=== PATIENT | female | born 1995 | race Caucasian/White ===

== ENCOUNTER 2017-09-23 15:37 | Emergency (ER) | payer BC, OTHER ==
[~2017-09-23] VITALS: Ht 160 cm; Wt 94.5 kg
[2017-09-23 15:40] VITALS: TEMP 36.6; O2SAT 98; Ht 160 cm; Wt 94.5 kg
[2017-09-23] MEDS ORDERED: SODIUM CHLORIDE 0.9% 1000ML 1,000 ML IV STA ×2 (16:04→18:16)
[2017-09-23] MEDS ORDERED: ONDANSETRON INJ 2 MG/ML 2 ML VIAL IV STA (16:04)
[2017-09-23] MEDS ORDERED: CYCL10TA6 PO (16:13)
[2017-09-23] MEDS ORDERED: ONDANSETRON INJ 2 MG/ML 2 ML VIAL ONE (16:15)
[2017-09-23 16:24] LABS: BASO % 0.1 %; BASO ABS # 0.03 K/uL (0-0.2); EOS % 0.2 %; EOS ABS # 0.05 K/uL (0-0.5); HEMATOCRIT 47.1 % (37-47); HEMOGLOBIN 16.6 g/dL (12.0-16.0); IG# 0.08 K/uL (0.00-0.02); LYMPH % 9.8 %; LYMPH ABS # 2.11 K/uL (1.2-3.4); MEAN CELL VOLUME 87.4 fL (80-100); MEAN CORPUSCULAR HEMOGLOBIN 30.8 pg (25-34); MEAN CORPUSCULAR HGB CONC 35.2 g/dl (32-36); MEAN PLATELET VOLUME 10.5 fL (7.4-10.4); MONO % 6.3 %; MONO ABS # 1.35 K/uL (0.11-0.59); NEUT % 83.2 %; NEUT ABS # 17.92 K/uL (1.4-6.5); PLATELET COUNT 330 K/uL (130-400); RED CELL DISTRIBUTION WIDTH CV 12.8 % (11.5-14.5); RED CELL DISTRIBUTION WIDTH SD 40.5 fL (36.4-46.3); WHITE BLOOD COUNT 21.54 K/uL (4.8-10.8)
--- NOTE | 2017-09-23 16:30 | EMERGENCY ROOM VISIT NOTE ---
History First contact with patient: 15:43 Chief Complaint: SYNCOPE (NEAR SYNCOPE) Stated Complaint: LIGHTHEADED, Nursing Triage Summary: Pt was donating plasma at [facility] and became lightheaded, diaphoretic, and vomited x1. Pt did not lose conciousness. Pt reports she has had 2 similar episodes in the last several weeks, but she was not donating plasma at the time and she did not vomit. Pt was evaluated at [facility] [place] after episodes. Pt reports she had a few granola bars today. Denies pain anywhere. History of Present Illness The patient is a 21 year old female who presents to the Emergency Room with complaints of presyncopal episode which occurred today while donating plasma. The patient states she was at [facility] and was part way through the plasma donation when she began experiencing significant lightheadedness, diaphoresis, and emesis 1. The patient did not lose consciousness. She does report having 2 similar episodes in the past 2-3 weeks, but states these episodes were not obviously provoked. 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 She states she was at the nursing station at that time. She was seen and evaluated in the emergency department, and states her heart rate was 140 at the time. That was the only abnormality in addition to a urinary tract infection. She states she was treated with Bactrim, and did not experience any episodes until after finishing the course. The second episode occurred approximately 8 days later while cutting onions. She was seen at a different hospital at that time, and had a normal workup performed. The patient does have an appointment scheduled at Dr. Kaur's office on Tuesday for further evaluation of her symptoms. She states she has not had any in-depth lab work performed, and has only had basic labs. She does report some associated suprapubic, right lower quadrant pelvic pain, and states she is uncertain if this pain has been present for a while or started after vomiting. She does report occasional alcohol use, and states she had one beer last evening, but did drink a propel and eat breakfast this morning. She reports irregular periods, and states her last period was in March. She is sexually active, and states she is not on control. She does have a history of PCOS. She denies any neurological symptoms including confusion, head injury, visual disturbances. She denies any recent illness with fever, congestion, rhinorrhea, otalgia, sore throat, cough, abdominal pain, diarrhea, constipation, nausea, vomiting. 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 Review of Systems A complete 10 point review of systems was reviewed with the patient with pertinent positives and negatives as per history of present illness. All else were negative. Past Medical/Surgical History PCOS Social History Smoking Status: Former Smoker Smokeless Tobacco Use: No Alcohol Use: occasionally Drug Use: none Marital Status: single Housing Status: lives with roommate Occupation Status: [employer] student Current/Historical Medications Scheduled PRN Cyclobenzaprine Hcl (Flexeril), 10 MG PO TID PRN for Muscle Spasm Physical Exam Vital Signs Date Time Temp Pulse Resp B/P (MAP) Pulse Ox O2 Delivery O2 Flow Rate FiO2 09/23/17 21:12 78 18 117/79 98 09/23/17 20:36 69 09/23/17 20:11 70 20 101/70 100 09/23/17 19:30 65 09/23/17 19:00 71 15 09/23/17 17:34 80 16 118/76 100 09/23/17 15:40 98 Room Air 09/23/17 15:40 36.6 95 18 106/71 98 Room Air Physical Exam VITALS: Vitals are noted on the nurse's note and reviewed by myself. Vital signs stable. GENERAL: This is a 21-year-old obese white female, in no acute distress, nondiaphoretic, well-developed well-nourished. SKIN: The skin was without rashes, erythema, edema, or bruising. There is no tenting of the skin. Capillary reflex less than 2 seconds. HEAD: Normocephalic atraumatic. EARS: External auditory canals clear, tympanic membranes pearly corona without erythema or effusion bilaterally. EYES: Pupils equal round and reactive to light and accommodation. Conjunctivae without injection, sclerae without icterus. Extraocular movements intact. NOSE: Patent, turbinates without inflammation or discharge. No sinus tenderness. MOUTH: Mucous membranes moist. Tonsils are not enlarged. Pharynx without erythema or exudate. Uvula midline. Airway patent. Tongue does not deviate. NECK: Supple without nuchal rigidity. No lymphadenopathy. No thyromegaly. Cervical spine is nontender. No JVD. HEART: Regular rate and rhythm without murmurs gallops or rubs. LUNGS: Clear to auscultation bilaterally without wheezes, rales or rhonchi. No dullness to percussion. No retractions or accessory muscle use. ABDOMEN: Positive bowel sounds x 4. Normal tympanic percussion. Suprapubic tenderness on palpation with some mild discomfort in the RLQ. Abdomen was otherwise soft, nontender, without masses or organomegaly. Martinez sign negative. No guarding or rebound tenderness. MUSCULOSKELETAL: No muscle atrophy, erythema, or edema noted. Full range of motion without joint tenderness in all extremities. No tenderness to palpation. Normal gait. Strength 5/5 throughout. NEURO: Patient was alert and oriented to person place and time. Normal sensation to light and sharp touch. Deep tendon reflexes 2+ throughout. No focal neurological deficits. Medical Decision & Procedures ER Provider Diagnostic Interpretation: ULTRASOUND OF THE PELVIS CLINICAL HISTORY: Pelvic pain. COMPARISON STUDY: No priors. TECHNIQUE: Real-time, grayscale, and color flow sonography of the pelvis is performed transabdominally. Images are reviewed in the transverse and longitudinal planes. The patient declined the endovaginal examination. FINDINGS: Uterus: The uterus is normal in size and echotexture, measuring 6.1 x 3.0 x 3.7 cm. Endometrium: The endometrium is normal in appearance, and the endometrial stripe is normal in thickness measuring up to 0.8 cm. Ovaries: The ovaries are normal in size and morphology. The right ovary measures 3.7 x 2.5 x 2.1 cm and the left ovary measures 3.2 x 2.5 x 2.8 cm. Small follicles are noted bilaterally. Normal Doppler waveforms are shown within both ovaries. Pelvis: There is no free fluid in the cul-de-sac. No concerning adnexal lesion is seen. IMPRESSION: Unremarkable transabdominal sonographic assessment of the pelvis. Electronically signed by: Jermaine Guzmán M.D. 09/23/2017 4:54 PM Dictated Date/Time: 09/23/2017 4:53 PM TWO VIEW CHEST CLINICAL HISTORY: Presyncope. FINDINGS: PA and lateral chest radiographs are obtained. No prior studies are available for comparison at the time of dictation. The cardiomediastinal silhouette is unremarkable. The lungs and pleural spaces are clear. There is no pneumothorax. The bony thorax appears intact. IMPRESSION: No active disease in the chest. Electronically signed by: Jermaine Guzmán M.D. 09/23/2017 5:44 PM Dictated Date/Time: 09/23/2017 5:[address] SCAN OF THE ABDOMEN AND PELVIS WITH IV CONTRAST CLINICAL HISTORY: Right lower quadrant abdominal pain. COMPARISON STUDY: Pelvic ultrasound dated 09/23/2017. TECHNIQUE: Following the IV administration of 120 cc of Optiray 320, CT scan of the abdomen and pelvis is performed from the lung bases to the proximal femora. Images are reviewed in the axial, sagittal, and coronal planes. IV contrast was administered without complication. A dose lowering technique was utilized adhering to the principles of ALARA. The examination is degraded by streak artifact from metallic orthopedic hardware. CT DOSE: 675.59 mGy.cm FINDINGS: Lung bases: The heart is normal in size and without pericardial effusion. The lung bases are clear. Liver: The contrast-enhanced liver is normal in size, contour, and attenuation. There is no intrahepatic biliary ductal dilatation. The hepatic veins and portal veins are patent. Gallbladder: Unremarkable. Spleen: Normal in size and attenuation. Pancreas: Unremarkable. Adrenal glands: Unremarkable. Kidneys: The contrast enhanced kidneys are normal in size and without hydronephrosis. The kidneys enhance symmetrically. Abdominal vasculature: The abdominal aorta is normal in course and caliber. Bowel: The small bowel and colon are normal in course and caliber. The appendix is well-visualized and normal. Peritoneum: There is no intraperitoneal free air or abdominal ascites. Lymphadenopathy: None. Pelvic viscera: Mild bladder wall thickening is suggested. The uterus and adnexa are normal in appearance noting bilateral ovarian follicles. Skeletal structures: No lytic or blastic lesions are seen. There are postoperative changes from L4-S1 spinal fusion. Sacral bolts are in place. IMPRESSION: 1. Circumferential bladder wall thickening is suggested. Correlate clinically and with urinalysis for evidence of cystitis. 2. The appendix is well-visualized and normal. 3. Additional findings as above. Electronically signed by: Jermaine Guzmán M.D. 09/23/2017 6:56 PM Dictated Date/Time: 09/23/2017 6:51 PM Laboratory Results 09/23/17 20:23 Red Blood Count 4.66, Mean Corpuscular Volume 87.8, Mean Corpuscular Hemoglobin 30.7, Mean Corpuscular Hemoglobin Concent 35.0, Mean Platelet Volume 10.3, Neutrophils (%) (Auto) 84.4, Lymphocytes (%) (Auto) 10.7, Monocytes (%) (Auto) 4.3, Eosinophils (%) (Auto) 0.1, Basophils (%) (Auto) 0.2, Neutrophils # (Auto) 13.27, Lymphocytes # (Auto) 1.68, Monocytes # (Auto) 0.67, Eosinophils # (Auto) 0.02, Basophils # (Auto) 0.03 09/23/17 16:00 Test 09/23/17 15:49 09/23/17 16:00 09/23/17 17:30 09/23/17 20:23 Bedside Glucose 105 mg/dl (70-90) Erythrocyte Sedimentation Rate 4 mm/hr (0-21) Prothrombin Time 11.3 SECONDS (9.0-12.0) Prothromb Time International Ratio 1.1 (0.9-1.1) Activated Partial Thromboplast Time 24.4 SECONDS (21.0-31.0) Partial Thromboplastin Ratio 0.9 Anion Gap 7.0 mmol/L (3-11) Est Creatinine Clear Calc Drug Dose 122.6 ml/min Estimated GFR () 123.0 Estimated GFR (Non- 106.1 BUN/Creatinine Ratio 13.9 (10-20) Calcium Level 8.6 mg/dl (8.5-10.1) Total Bilirubin 0.6 mg/dl (0.2-1) Aspartate Amino Transf (AST/SGOT) 14 U/L (15-37) Alanine Aminotransferase (ALT/SGPT) 25 U/L (12-78) Alkaline Phosphatase 85 U/L (45-117) Total Protein 7.0 gm/dl (6.4-8.2) Albumin 3.3 gm/dl (3.4-5.0) Globulin 3.7 gm/dl (2.5-4.0) Albumin/Globulin Ratio 0.9 (0.9-2) Thyroid Stimulating Hormone (TSH) 1.470 uIu/ml (0.300-4.500) Human Chorionic Gonadotropin, Quant < 1 mIU/mL Lyme Disease IgG Antibody NEG (NEG) Lyme Disease IgM Antibody NEG (NEG) Monoscreen NEG (NEG) Urine Color DK YELLOW Urine Appearance CLOUDY (CLEAR) Urine pH 6.0 (4.5-7.5) Urine Specific [place] 1.028 (1.000-1.030) Urine Protein TRACE (NEG) Urine Glucose (UA) NEG (NEG) Urine Ketones TRACE (NEG) Urine Occult Blood NEG (NEG) Urine Nitrite NEG (NEG) Urine Bilirubin NEG (NEG) Urine Urobilinogen NEG (NEG) Urine Leukocyte Esterase TRACE (NEG) Urine WBC (Auto) 10-30 /hpf (0-5) Urine RBC (Auto) 0-4 /hpf (0-4) Urine Hyaline Casts (Auto) 10-30 /lpf (0-5) Urine Epithelial Cells (Auto) >30 /lpf (0-5) Urine Bacteria (Auto) NEG (NEG) Urine Renal Epithelial Cells 0-5 /lpf (0-5) White Blood Count 15.71 K/uL (4.8-10.8) Red Blood Count 4.66 M/uL (4.2-5.4) Hemoglobin 14.3 g/dL (12.0-16.0) Hematocrit 40.9 % (37-47) Mean Corpuscular Volume 87.8 fL (80-100) Mean Corpuscular Hemoglobin 30.7 pg (25-34) Mean Corpuscular Hemoglobin Concent 35.0 g/dl (32-36) Platelet Count 260 K/uL (130-400) Mean Platelet Volume 10.3 fL (7.4-10.4) Neutrophils (%) (Auto) 84.4 % Lymphocytes (%) (Auto) 10.7 % Monocytes (%) (Auto) 4.3 % Eosinophils (%) (Auto) 0.1 % Basophils (%) (Auto) 0.2 % Neutrophils # (Auto) 13.27 K/uL (1.4-6.5) Lymphocytes # (Auto) 1.68 K/uL (1.2-3.4) Monocytes # (Auto) 0.67 K/uL (0.11-0.59) Eosinophils # (Auto) 0.02 K/uL (0-0.5) Basophils # (Auto) 0.03 K/uL (0-0.2) RDW Standard Deviation 41.0 fL (36.4-46.3) RDW Coefficient of Variation 12.9 % (11.5-14.5) Immature Granulocyte % (Auto) 0.3 % Immature Granulocyte # (Auto) 0.04 K/uL (0.00-0.02) Medications Administered Medications (Trade) Dose Ordered Sig/Bert Route Start Time Stop Time Status Last Admin Dose Admin Sodium Chloride 1,000 ml @ 999 mls/hr Q1H1M STAT IV 09/23/17 16:04 09/23/17 17:04 DC 09/23/17 16:18 999 MLS/HR Ondansetron HCl (Zofran Inj) 4 mg NOW STAT IV 09/23/17 16:04 09/23/17 16:15 DC 09/23/17 16:19 4 MG Sodium Chloride 1,000 ml @ 999 mls/hr Q1H1M STAT IV 09/23/17 18:16 09/23/17 19:16 DC 09/23/17 18:21 999 MLS/HR ECG Per My Interpretation Indication: tachycardia, syncope Rate (beats per minute): 101 Rhythm: sinus tachycardia Findings: no acute ischemic change, no ectopy Comparison ECG Date: no prior available ED Course The patient was seen and evaluated as above. EKG performed and interpreted by myself as above. IV access obtained, labs drawn. Patient was given 1 L normal saline solution, 4 mg Zofran. I discussed the case with Dr. Albarran. Ultrasound of the pelvis performed and reviewed by myself and radiologist as above. Chest x-ray performed and reviewed by myself and radiologist as above. Labs reviewed by myself. I discussed the findings with the patient at bedside. Due to elevated white blood cell count and suprapubic abdominal pain, CT scan of the abdomen/pelvis performed and reviewed by myself and radiologist as above. The patient was given a second liter of normal saline solution. Repeat CBC performed. I discussed the findings with the patient at bedside. Discharge instructions reviewed, the patient was discharged home in good condition. Medical Decision This is a 21-year-old female patient presents to the emergency department today complaining of a presyncopal episode while donating plasma. The patient states this is not her first presyncopal episode, and in fact, has experienced multiple unprovoked episodes over the past 3 weeks. The patient has been worked up at different emergency departments due to the episodes without any obvious cause. 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 She has not had a more in-depth workup performed, but does have an appointment scheduled with her PCP next week. The patient does report irregular periods, and states she noticed some suprapubic, right lower quadrant abdominal pain which began today. She is uncertain if she has had the pain previously with similar episodes. She is sexually active, and her last menstrual period was in March. On examination, the patient's lab draw site from 1-2 hours ago was still bleeding. She did experience another episode of presyncope with diaphoresis, nausea, and did vomit approximately 1500 cc of emesis while attempting to have labs drawn while here in the emergency department. Here in the emergency department, a relatively extensive workup was initiated. The only significant finding was leukocytosis of 21,000 with increased neutrophils. The patient was not anemic, and there was no thrombocytopenia. Repeat CBC performed after 2 L of fluids and rest did show a still elevated white blood cell count of 15,000, however this has significantly improved. The patient is feeling much better on reevaluation. Urinalysis does appear to be contaminated, but there was no bacteria or nitrites. There were some slight protein and ketones, but no obvious signs of infection. The patient denies any urinary tract infection symptoms. Her coagulation factors were normal. Electrolytes were without abnormalities. Renal and hepatic function were normal. TSH was normal. Patient's quantitative hCG, performed due to multiple previous negative urine hCG tests was negative. Patient's Lyme disease testing and mono screen were negative as well. Initial pelvic ultrasound did not show any abnormalities or causes for the suprapubic pain. Chest x-ray was negative. In the setting of leukocytosis and right lower quadrant pain, a CT scan of the abdomen/pelvis was performed to rule out appendicitis. This did show some circumferential bladder wall thickening, however the urinalysis does not show any obvious signs of infection. I discussed all findings with the patient at bedside. I am concerned of the leukocytosis, but suspect a possible stress reaction to the events of the day. The patient is encouraged to closely follow-up outpatient with her primary care provider, and she is in agreement with this. Throughout the course of the patient's care, I did discuss the case closely with Dr. Albarran, who was in agreement with the assessment and plan. Etiologies such as vasovagal event, infection, hypoglycemia, electrolyte abnormalities, cardiac sources, intracerebral event, toxicologic, neurologic, appendicitis, diverticulitis, obstruction, inflammatory bowel disease, renal colic, PUD, biliary pathology, pancreatitis, mesenteric ischemia, aortic pathology, infections, lyme disease, mono, genitourinary, UTI, perforated viscus , FIELD MARKETING DIRECTOR, , as well as others were entertained. The chart was completed utilizing [employer] Speech voice recognition software. Grammatical errors, random word insertions, pronoun errors, and incomplete sentences are an occasional consequence of this system due to software limitations, ambient noise, and hardware issues. Any formal questions or concerns about the content, text, or information contained within the body of this dictation should be directly addressed to the provider for clarification. Medication Reconcilliation Current Medication List: was personally reviewed by me Blood Pressure Screening Patient's blood pressure: Normal blood pressure Impression Primary Impression: Leukocytosis, unspecified Additional Impressions: Pre-syncope Abdominal pain Fatigue Departure Information Dispostion Home / Self-Care Condition GOOD Patient Instructions ED Abdominal Pain Unkn Cause, ED Near Syncope Unkn, My [facility] Additional Instructions You were seen and evaluated in the emergency department today for a pre- syncopal episode. As discussed, your white blood cell count was significantly elevated on initial evaluation. It was 21,000, but did improve after fluids and rest to 15,000. There is no obvious signs or causes of infection, and I suspect a stress response, however it is imperative that you follow-up with your primary care provider for recheck in 2-3 days. Please avoid exercise or strenuous activity until follow-up with your primary care provider. Please get plenty of rest and drink plenty of fluids. You should be eating regularly. Ibuprofen(Motrin, Advil) may be used for fever or pain. Use 600mg every six hours as needed. Take with food. Avoid using more than 2400mg in a 24 hour period. Do not use 2400mg per day for more than three consecutive days without physician direction. Prolonged inappropriate use can lead to stomach upset or ulcers. (AND/OR) Acetaminophen(Tylenol) may be used for fever or pain. Use 1000mg every six hours as needed. Avoid using more than 3000mg in a 24 hour period. Return immediately to the emergency department for any syncopal episode, chest pain, difficulty breathing, coughing up blood, fevers, or other concerning symptoms. Follow-up with your primary care provider your regularly scheduled appointment on Tuesday. Problem Qualifiers Additional Impressions: Abdominal pain Abdominal location: right lower quadrant Qualified Codes: R10.31 - Right lower quadrant pain Fatigue Fatigue type: unspecified Qualified Codes: R53.83 - Other fatigue
[2017-09-23 16:31] LABS: ALBUMIN 3.3 gm/dl (3.4-5.0); CALCIUM 8.6 mg/dl (8.5-10.1); CREATININE 0.8 mg/dl (0.60-1.20); POTASSIUM 3.8 mmol/L (3.5-5.1)
[2017-09-23 16:32] LABS: INR 1.1 (0.9-1.1); PTT PATIENT 24.4 SECONDS (21.0-31.0)
[2017-09-23 16:46] LABS: MONOSPOT NEG (NEG)
--- NOTE | 2017-09-23 16:55 | DIAGNOSTIC IMAGING REPORT ---
ULTRASOUND OF THE PELVIS CLINICAL HISTORY: Pelvic pain. COMPARISON STUDY: No priors. TECHNIQUE: Real-time, grayscale, and color flow sonography of the pelvis is performed transabdominally. Images are reviewed in the transverse and longitudinal planes. The patient declined the endovaginal examination. FINDINGS: Uterus: The uterus is normal in size and echotexture, measuring 6.1 x 3.0 x 3.7 cm. Endometrium: The endometrium is normal in appearance, and the endometrial stripe is normal in thickness measuring up to 0.8 cm. Ovaries: The ovaries are normal in size and morphology. The right ovary measures 3.7 x 2.5 x 2.1 cm and the left ovary measures 3.2 x 2.5 x 2.8 cm. Small follicles are noted bilaterally. Normal Doppler waveforms are shown within both ovaries. Pelvis: There is no free fluid in the cul-de-sac. No concerning adnexal lesion is seen. IMPRESSION: Unremarkable transabdominal sonographic assessment of the pelvis. Electronically signed by: Jermaine Guzmán M.D. 09/23/2017 4:54 PM Dictated Date/Time: 09/23/2017 4:53 PM
--- NOTE | 2017-09-23 17:45 | DIAGNOSTIC IMAGING REPORT ---
TWO VIEW CHEST CLINICAL HISTORY: Presyncope. FINDINGS: PA and lateral chest radiographs are obtained. No prior studies are available for comparison at the time of dictation. The cardiomediastinal silhouette is unremarkable. The lungs and pleural spaces are clear. There is no pneumothorax. The bony thorax appears intact. IMPRESSION: No active disease in the chest. Electronically signed by: Jermaine Guzmán M.D. 09/23/2017 5:44 PM Dictated Date/Time: 09/23/2017 5:44 PM
[2017-09-23] MEDS ORDERED: OPTIRAY 320 IV PRN (18:30)
--- NOTE | 2017-09-23 18:57 | DIAGNOSTIC IMAGING REPORT ---
CT SCAN OF THE ABDOMEN AND PELVIS WITH IV CONTRAST CLINICAL HISTORY: Right lower quadrant abdominal pain. COMPARISON STUDY: Pelvic ultrasound dated 09/23/2017. TECHNIQUE: Following the IV administration of 120 cc of Optiray 320, CT scan of the abdomen and pelvis is performed from the lung bases to the proximal femora. Images are reviewed in the axial, sagittal, and coronal planes. IV contrast was administered without complication. A dose lowering technique was utilized adhering to the principles of ALARA. The examination is degraded by streak artifact from metallic orthopedic hardware. CT DOSE: 675.59 mGy.cm FINDINGS: Lung bases: The heart is normal in size and without pericardial effusion. The lung bases are clear. Liver: The contrast-enhanced liver is normal in size, contour, and attenuation. There is no intrahepatic biliary ductal dilatation. The hepatic veins and portal veins are patent. Gallbladder: Unremarkable. Spleen: Normal in size and attenuation. Pancreas: Unremarkable. Adrenal glands: Unremarkable. Kidneys: The contrast enhanced kidneys are normal in size and without hydronephrosis. The kidneys enhance symmetrically. Abdominal vasculature: The abdominal aorta is normal in course and caliber. Bowel: The small bowel and colon are normal in course and caliber. The appendix is well-visualized and normal. Peritoneum: There is no intraperitoneal free air or abdominal ascites. Lymphadenopathy: None. Pelvic viscera: Mild bladder wall thickening is suggested. The uterus and adnexa are normal in appearance noting bilateral ovarian follicles. Skeletal structures: No lytic or blastic lesions are seen. There are postoperative changes from L4-S1 spinal fusion. Sacral bolts are in place. IMPRESSION: 1. Circumferential bladder wall thickening is suggested. Correlate clinically and with urinalysis for evidence of cystitis. 2. The appendix is well-visualized and normal. 3. Additional findings as above. Electronically signed by: Jermaine Guzmán M.D. 09/23/2017 6:56 PM Dictated Date/Time: 09/23/2017 6:51 PM
[2017-09-23 20:45] LABS: BASO % 0.2 %; BASO ABS # 0.03 K/uL (0-0.2); EOS % 0.1 %; EOS ABS # 0.02 K/uL (0-0.5); HEMATOCRIT 40.9 % (37-47); HEMOGLOBIN 14.3 g/dL (12.0-16.0); IG# 0.04 K/uL (0.00-0.02); LYMPH % 10.7 %; LYMPH ABS # 1.68 K/uL (1.2-3.4); MEAN CELL VOLUME 87.8 fL (80-100); MEAN CORPUSCULAR HEMOGLOBIN 30.7 pg (25-34); MEAN PLATELET VOLUME 10.3 fL (7.4-10.4); MONO % 4.3 %; MONO ABS # 0.67 K/uL (0.11-0.59); NEUT % 84.4 %; NEUT ABS # 13.27 K/uL (1.4-6.5); PLATELET COUNT 260 K/uL (130-400); RED CELL DISTRIBUTION WIDTH CV 12.9 % (11.5-14.5); WHITE BLOOD COUNT 15.71 K/uL (4.8-10.8)
[2017-09-23 21:12] VITALS: BP 117/79; PULSE 78; O2SAT 98
== END 2017-09-23 21:13 | disposition home or self-care (01) ==
LOC: EDBD 15:37 → C.EDD 15:38
DX: R55 Syncope and collapse (principal); D72.829 Elevated white blood cell count, unspecified; R53.83 Other fatigue; R10.31 Right lower quadrant pain; Z87.440 Personal history of urinary (tract) infections; Z87.891 Personal history of nicotine dependence; E66.9 Obesity, unspecified

== ENCOUNTER 2017-09-25 00:32 | Emergency (ER) | payer OTHER ==
[~2017-09-25] VITALS: Ht 160 cm; Wt 95.0 kg
[~2017-09-25 00:32] MED LIST: CYCL10TA6 PO
[2017-09-25 00:38] VITALS: TEMP 36.4; Ht 160 cm; Wt 95.0 kg
[2017-09-25] MEDS ORDERED: SODIUM CHLORIDE 0.9% 1000ML 1,000 ML IV STA (00:57)
[2017-09-25 01:44] LABS: BASO % 0.2 %; BASO ABS # 0.02 K/uL (0-0.2); EOS % 1.4 %; EOS ABS # 0.15 K/uL (0-0.5); HEMATOCRIT 38.3 % (37-47); HEMOGLOBIN 13.3 g/dL (12.0-16.0); IG# 0.02 K/uL (0.00-0.02); LYMPH % 24.9 %; LYMPH ABS # 2.58 K/uL (1.2-3.4); MEAN CELL VOLUME 88.2 fL (80-100); MEAN CORPUSCULAR HEMOGLOBIN 30.6 pg (25-34); MEAN CORPUSCULAR HGB CONC 34.7 g/dl (32-36); MEAN PLATELET VOLUME 10.1 fL (7.4-10.4); MONO ABS # 0.93 K/uL (0.11-0.59); NEUT % 64.3 %; NEUT ABS # 6.65 K/uL (1.4-6.5); PLATELET COUNT 270 K/uL (130-400); RED CELL DISTRIBUTION WIDTH CV 12.6 % (11.5-14.5); RED CELL DISTRIBUTION WIDTH SD 40.6 fL (36.4-46.3); WHITE BLOOD COUNT 10.35 K/uL (4.8-10.8)
[2017-09-25 02:01] LABS: ALT/SGPT 23 U/L (12-78); AST/SGOT 13 U/L (15-37); BLOOD UREA NITROGEN 10 mg/dl (7-18); CALCIUM 8.5 mg/dl (8.5-10.1); CARBON DIOXIDE 29 mmol/L (21-32); CREATININE 0.77 mg/dl (0.60-1.20); GLUCOSE 86 mg/dl (70-99); POTASSIUM 3.7 mmol/L (3.5-5.1); SODIUM 139 mmol/L (136-145)
[2017-09-25 02:12] LABS: ALKALINE PHOSPHATASE 71 U/L (45-117); TOTAL PROTEIN 6.5 gm/dl (6.4-8.2)
--- NOTE | 2017-09-25 03:29 | Medical Consult ---
Consultation Date of Consultation: Sep 25, 2017. Attending Physician: Megan Chaparro MD Reason for Consultation: Syncope History of Present Illness 21 yo F with previously healthy female presenting with multiple syncopal episodes. Patient reports around 10 pm last night, she passed out sitting down while watching tv, patient reports passing out for approximately 2 minutes. Prior to passing out patient she felt a sensation of dizziness. It recurred 10 minutes later lasting about 1 minute. A subsequent episode occurred within 2 hrs time and she was by found after falling off bed. She denies significant injury. On the latest episode she was in the kitchen, and was found on the floor. Following the second episode, she began to feel associated Left sided chest discomfort worse with inspiration. She also reports associated n/v. She denies fevers, chills, abdominal pain, change in stool, urinary symptoms. Patient has no prior history of syncope of cardiac abnormality SHe has never passed out during exertion. She denies any family history of heart abnormalities or sudden . She did come to the ED 09/23 for presyncopal symptoms while donating plasma , nausea, suprapubic pain. CT abdomen was negative except for bladder wall thickening, however UA negative, so she was not treated for a UTI. Patient did a have a leukocytosis however there was no obvious sign of infection. In the ED today , she was found to have elevated TSH, unremarkable CBC, BMP. EKG showed no acute ischemic changes or ectopy and troponin was negative CT Head was negative for acute intracranial abnormality. Past Medical/Surgical History Medical Problems: (1) Abdominal pain Status: Acute (2) Fatigue Status: Acute (3) Leukocytosis, unspecified Status: Acute (4) Pre-syncope Status: Acute Past Medical History PCOS Surgical Hx Lumbar spine surgery Family History COPD Lung Cancer Social History Smoking Status: Current Every Day Smoker Alcohol Use: occasionally Drug Use: none Marital Status: single Housing Status: lives with roommate Occupation Status: [employer] student Allergies Coded Allergies: Amoxicillin (Verified Allergy, Intermediate, Hives, 09/23/17) Home Medications Flexeril Review of Systems Constitutional: No fever, No chills, No weakness Respiratory: No cough, No shortness of breath Cardiovascular: + chest pain, No edema, No palpitations Abdomen: + nausea, + vomiting, No pain, No diarrhea, No constipation Genitourinary - Female: No dysuria, No urinary frequency, No urinary urgency Psychiatric: No depression symptoms, No anxiety Integumentary: No rash Physical Exam Date Time Temp Pulse Resp B/P (MAP) Pulse Ox O2 Delivery O2 Flow Rate FiO2 09/25/17 02:48 75 16 127/77 98 Room Air 09/25/17 01:23 80 15 112/74 97 Room Air 09/25/17 01:22 69 16 106/63 85 115/72 87 112/74 09/25/17 01:05 73 09/25/17 00:38 36.4 78 20 131/85 96 Room Air General Appearance: WD/WN, no apparent distress, + obese Head: normocephalic, atraumatic Neck: supple, no adenopathy, trachea midline Respiratory/Chest: chest non-tender, lungs clear, normal breath sounds, no respiratory distress Cardiovascular: regular rate, rhythm, no edema, no murmur, normal peripheral pulses Abdomen/GI: normal bowel sounds, non tender, soft, no organomegaly Back: normal inspection, normal range of motion Extremities/Musculoskelatal: no calf tenderness, normal capillary refill, no pedal edema 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, no motor/sensory deficits, alert, normal mood/affect, normal reflexes, oriented x 3 Skin: normal color, warm/dry Laboratory Results Last 24 Hours Test 09/25/17 01:30 White Blood Count 10.35 K/uL Red Blood Count 4.34 M/uL Hemoglobin 13.3 g/dL Hematocrit 38.3 % Mean Corpuscular Volume 88.2 fL Mean Corpuscular Hemoglobin 30.6 pg Mean Corpuscular Hemoglobin Concent 34.7 g/dl Platelet Count 270 K/uL Mean Platelet Volume 10.1 fL Neutrophils (%) (Auto) 64.3 % Lymphocytes (%) (Auto) 24.9 % Monocytes (%) (Auto) 9.0 % Eosinophils (%) (Auto) 1.4 % Basophils (%) (Auto) 0.2 % Neutrophils # (Auto) 6.65 K/uL Lymphocytes # (Auto) 2.58 K/uL Monocytes # (Auto) 0.93 K/uL Eosinophils # (Auto) 0.15 K/uL Basophils # (Auto) 0.02 K/uL RDW Standard Deviation 40.6 fL RDW Coefficient of Variation 12.6 % Immature Granulocyte % (Auto) 0.2 % Immature Granulocyte # (Auto) 0.02 K/uL Bedside D-Dimer 284 ng/mlFEU Urine Color YELLOW Urine Appearance ERROR Urine pH 6.5 Urine Specific [place]mbar[place] 1.019 Urine Protein NEG Urine Glucose (UA) NEG Urine Ketones NEG Urine Occult Blood NEG Urine Nitrite NEG Urine Bilirubin NEG Urine Urobilinogen NEG Urine Leukocyte Esterase NEG Sodium Level 139 mmol/L Potassium Level 3.7 mmol/L Chloride Level 105 mmol/L Carbon Dioxide Level 29 mmol/L Anion Gap 5.0 mmol/L Blood Urea Nitrogen 10 mg/dl Creatinine 0.77 mg/dl Est Creatinine Clear Calc Drug Dose 127.7 ml/min Estimated GFR () 128.8 Estimated GFR (Non- 111.1 BUN/Creatinine Ratio 13.1 Random Glucose 86 mg/dl Calcium Level 8.5 mg/dl Magnesium Level 2.0 mg/dl Total Bilirubin 0.2 mg/dl Direct Bilirubin < 0.1 mg/dl Aspartate Amino Transf (AST/SGOT) 13 U/L Alanine Aminotransferase (ALT/SGPT) 23 U/L Alkaline Phosphatase 71 U/L Bedside Troponin I < 0.030 ng/ml Troponin I < 0.015 ng/ml Total Protein 6.5 gm/dl Albumin 3.0 gm/dl Thyroid Stimulating Hormone (TSH) 5.910 uIu/ml Urine Opiates Screen NEG Urine Methadone, Qualitative NEG Urine Barbiturates NEG Urine Phencyclidine (PCP) Level NEG Ur Amphetamine/Methamphetamine NEG MDMA (Ecstasy) Screen NEG Urine Benzodiazepines Screen NEG Urine Cocaine Metabolite NEG Urine Marijuana (THC) NEG Assessment & Plan 21 yo F previously healthy Female presenting for multiple syncopal episodes with prodromal symptoms , pleuritic chest discomfort and nausea. VSS, Orthostatic vital signs were negative. EKG was unremarkable, CBC, BMP unremarkable, negative CT head. She did have an elevated TSH which could be contributor to fatigue. More than likely based on her pattern of prodrome and age, vasovagal syncope is most likely cause of her symptoms. Given age, lack of known risk factor for cardiac abnormalities, score of 0 on PERC score, further inpatient workup for syncope is not indicated. Her history is not consistent with structural heart disease given lack of exertional symptom history. Regarding Chest pain, ischemia is unlikely based on EKG and negative troponin. PE is unlikely given lack of risk factors. After discussion with patient, it was decided that she would be followed up outpatient by her PCP on Tuesday 09/26 for further workup. Resident Tracking Resident Involvement: Resident Care Provided Care Provided: Adult Hospital Medicine History Patient seen and examined, chart reviewed, case discussed with Dr. Jerez and I agree with his assessment and plan as documented above. Briefly, patient is a 21yo C female with history of PCOS presenting with multiple syncopal episodes. Patient was seen in the ER yesterday with the same complaint after she passed out while donating plasma. She reports two similar episodes occurring when she was at work which were associated with prodromal symptoms of feeling hot and nauseous. Tonight around 2200 she reports passing out for approximately 2 minutes. Event was witnessed, no seizure activity, no incontinence. No CP/ palpitations/head trauma. Patient states she felt warm and nauseous before passing out. She had three subsequent episodes shortly after. She felt some mild palpitations and chest discomfort after waking up from the second episode. Of note, patient does not routinely experience chest pain or palpitations. She has no familial history of sudden cardiac . No history of exertional or post-exertional syncope. On physical exam she is afebrile, hemodynamically stable, rise in HR 18bpm with orthostatic VS but no significant drop in blood pressure, resting comfortably in NAD. HEENT exam is unremarkable. CV-+S1/S2, regular, no m/r/g, no ectopy Lungs-CTA bilaterally, no rales/rhonchi or wheezes. Abd- benign. Laboratory results unremarkable with exception of elevated TSH=5.91 and low Albumin=3. CT head was performed which was negative. EKG normal. Assessment: 21yo C female with history of PCOS presenting with multiple syncopal episodes. Symptoms are most consistent with vasovagal syncope as most events had prodromal symptoms of feeling hot and nauseous. Patient with no personal or family history of heart disease or sudden cardiac and normal EKG and is therefore at low risk for adverse events. She is medically stable for discharge home. She has a followup appointment with Dr. Kaur scheduled for Tuesday.
[2017-09-25 03:46] VITALS: BP 113/75; PULSE 61; O2SAT 97
--- NOTE | 2017-09-25 06:28 | EMERGENCY ROOM VISIT NOTE ---
History First contact with patient: 00:43 Chief Complaint: SYNCOPE (NEAR SYNCOPE) Stated Complaint: DIZZY,PASSING OUT History of Present Illness The patient is a 21 year old female who presents to the Emergency Room with complaints of multiple syncopal episodes this past month. 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 Patient was seen here yesterday and had no clear etiology for her syncopal episodes. Patient states last night she had 4 syncopal episodes. Patient states she is watching TV and then passed out briefly. She states she felt confused afterwards. Patient states she hit her head. She is a mild headache. Patient states she occasionally has chest pains and feels slightly short of breath. She does smoke. No control. No recent travel. No leg pain or swelling. Patient denies exertional chest pain, fever, chills, cough, congestion, abdominal pain, nausea, vomiting, diarrhea, recent illness. She states is telling p.o. fluids and food. She denies any drug use. No family history of heart disease, aneurysm, sudden , blood clots. Review of Systems An 10 system review of systems was completed with positives and pertinent negatives listed in the HPI. Past Medical/Surgical History PCO S, back surgery Social History Smoking Status: Current Every Day Smoker Alcohol Use: occasionally Drug Use: none Marital Status: single Housing Status: lives with roommate Occupation Status: employed, student Current/Historical Medications Scheduled PRN Cyclobenzaprine Hcl (Flexeril), 10 MG PO TID PRN for Muscle Spasm Physical Exam Vital Signs Date Time Temp Pulse Resp B/P (MAP) Pulse Ox O2 Delivery O2 Flow Rate FiO2 09/25/17 03:46 61 16 113/75 97 Room Air 09/25/17 02:48 75 16 127/77 98 Room Air 09/25/17 01:23 80 15 112/74 97 Room Air 09/25/17 01:22 69 16 106/63 85 115/72 87 112/74 09/25/17 01:05 73 09/25/17 00:38 36.4 78 20 131/85 96 Room Air Physical Exam VITALS: Vitals are noted on the nurse's note and reviewed by myself. Vital signs stable. GENERAL: Pleasant female, in no acute distress, nondiaphoretic, well-developed well-nourished. SKIN: The skin was without rashes, erythema, edema, or bruising. There is no tenting of the skin. Capillary reflex less than 2 seconds. HEAD: Normocephalic atraumatic. EARS: External auditory canals clear, tympanic membranes pearly corona without erythema or effusion bilaterally. EYES: Pupils equal round and reactive to light and accommodation. Conjunctivae without injection, sclerae without icterus. Extraocular movements intact. NOSE: Patent, turbinates without inflammation or discharge. MOUTH: Mucous membranes moist. Pharynx without erythema or exudate. Uvula midline. Airway patent. Tongue does not deviate. NECK: Supple without nuchal rigidity. No lymphadenopathy. No thyromegaly. Cervical spine is nontender. No JVD. HEART: Regular rate and rhythm without murmurs gallops or rubs. LUNGS: Clear to auscultation bilaterally without wheezes, rales or rhonchi. No retractions or accessory muscle use. ABDOMEN: Positive bowel sounds x 4. Normal tympanic percussion. Soft, nontender, without masses or organomegaly. Martinez sign negative. No guarding or rebound tenderness. No CVA tenderness MUSCULOSKELETAL: No muscle atrophy, erythema, or edema noted. NEURO: Patient was alert and oriented to person place and time. Normal sensation to light and sharp touch. No focal neurological deficits. Medical Decision & Procedures Laboratory Results 09/25/17 01:30 Red Blood Count 4.34, Mean Corpuscular Volume 88.2, Mean Corpuscular Hemoglobin 30.6, Mean Corpuscular Hemoglobin Concent 34.7, Mean Platelet Volume 10.1, Neutrophils (%) (Auto) 64.3, Lymphocytes (%) (Auto) 24.9, Monocytes (%) (Auto) 9.0, Eosinophils (%) (Auto) 1.4, Basophils (%) (Auto) 0.2, Neutrophils # (Auto) 6.65, Lymphocytes # (Auto) 2.58, Monocytes # (Auto) 0.93, Eosinophils # (Auto) 0.15, Basophils # (Auto) 0.02 09/25/17 01:30 Test 09/25/17 01:30 White Blood Count 10.35 K/uL (4.8-10.8) Red Blood Count 4.34 M/uL (4.2-5.4) Hemoglobin 13.3 g/dL (12.0-16.0) Hematocrit 38.3 % (37-47) Mean Corpuscular Volume 88.2 fL (80-100) Mean Corpuscular Hemoglobin 30.6 pg (25-34) Mean Corpuscular Hemoglobin Concent 34.7 g/dl (32-36) Platelet Count 270 K/uL (130-400) Mean Platelet Volume 10.1 fL (7.4-10.4) Neutrophils (%) (Auto) 64.3 % Lymphocytes (%) (Auto) 24.9 % Monocytes (%) (Auto) 9.0 % Eosinophils (%) (Auto) 1.4 % Basophils (%) (Auto) 0.2 % Neutrophils # (Auto) 6.65 K/uL (1.4-6.5) Lymphocytes # (Auto) 2.58 K/uL (1.2-3.4) Monocytes # (Auto) 0.93 K/uL (0.11-0.59) Eosinophils # (Auto) 0.15 K/uL (0-0.5) Basophils # (Auto) 0.02 K/uL (0-0.2) RDW Standard Deviation 40.6 fL (36.4-46.3) RDW Coefficient of Variation 12.6 % (11.5-14.5) Immature Granulocyte % (Auto) 0.2 % Immature Granulocyte # (Auto) 0.02 K/uL (0.00-0.02) Bedside D-Dimer 284 ng/mlFEU (0-450) Urine Color YELLOW Urine Appearance ERROR (CLEAR) Urine pH 6.5 (4.5-7.5) Urine Specific [place] 1.019 (1.000-1.030) Urine Protein NEG (NEG) Urine Glucose (UA) NEG (NEG) Urine Ketones NEG (NEG) Urine Occult Blood NEG (NEG) Urine Nitrite NEG (NEG) Urine Bilirubin NEG (NEG) Urine Urobilinogen NEG (NEG) Urine Leukocyte Esterase NEG (NEG) Anion Gap 5.0 mmol/L (3-11) Est Creatinine Clear Calc Drug Dose 127.7 ml/min Estimated GFR () 128.8 Estimated GFR (Non- 111.1 BUN/Creatinine Ratio 13.1 (10-20) Calcium Level 8.5 mg/dl (8.5-10.1) Magnesium Level 2.0 mg/dl (1.8-2.4) Total Bilirubin 0.2 mg/dl (0.2-1) Direct Bilirubin < 0.1 mg/dl (0-0.2) Aspartate Amino Transf (AST/SGOT) 13 U/L (15-37) Alanine Aminotransferase (ALT/SGPT) 23 U/L (12-78) Alkaline Phosphatase 71 U/L (45-117) Bedside Troponin I < 0.030 ng/ml (0-0.045) Troponin I < 0.015 ng/ml (0-0.045) Total Protein 6.5 gm/dl (6.4-8.2) Albumin 3.0 gm/dl (3.4-5.0) Thyroid Stimulating Hormone (TSH) 5.910 uIu/ml (0.300-4.500) Urine Opiates Screen NEG (NEG) Urine Methadone, Qualitative NEG (NEG) Urine Barbiturates NEG (NEG) Urine Phencyclidine (PCP) Level NEG (NEG) Ur Amphetamine/Methamphetamine NEG (NEG) MDMA (Ecstasy) Screen NEG (NEG) Urine Benzodiazepines Screen NEG (NEG) Urine Cocaine Metabolite NEG (NEG) Urine Marijuana (THC) NEG (NEG) Medications Administered Medications (Trade) Dose Ordered Sig/Bert Route Start Time Stop Time Status Last Admin Dose Admin Sodium Chloride 1,000 ml @ 999 mls/hr Q1H1M STAT IV 09/25/17 00:57 09/25/17 01:57 DC 09/25/17 01:33 999 MLS/HR ED Course Prior records/ancillary studies reviewed. Triage Nursing notes reviewed. Additional history obtained from family. The patient's history was concerning for syncope. Differential diagnosis: Etiologies such as vasovagal event, infection, hypoglycemia, electrolyte abnormalities, cardiac sources, intracerebral event, toxicologic, neurologic, as well as others were entertained. Physical examination: Patient is alert, interactive well-appearing ER treatment provided: IV hydration with normal saline On reassessment the patient felt better. Diagnostics interpretation by me: ECG: Normal sinus, normal intervals, no acute ST-T wave changes. Impression normal sinus rhythm interpreted by myself The labs revealed negative hCG from yesterday. No leukocytosis. Stable H&H. Negative drug screen Negative d-dimer. Negative troponin Imaging studies: Head CT negative for intracranial bleed or fracture per stat radiology. Abdomen pelvis CT pelvic ultrasound and chest x-ray reviewed from yesterday and negative Consultation: A consultation was placed with Dr. Chaparro, hospitalist. The case was discussed and diagnostics were reviewed. The patient was evaluated in the ER for further treatment. She states the patient is safe to be discharged home and recommends outpatient follow-up. This appears to be consistent with syncope that is recurrent. Medicine was consulted for admission. They recommend discharge. Patient has appointment tomorrow with her family care doctor at [facility]. Patient was agreeable to this. Patient and family were informed that we cannot rule out any cardiac or neurological causes for her recurrent syncopal episodes. They understand these risks involved. Once again they were offered admission and declined. Patient was able to ambulate throughout the ER without difficulties. She was tolerating fluids. She is neurovascularly and neurologically intact. Unremarkable workup as above. She was advised to return to the ER meaty for syncope, chest pain, worsening signs or symptoms or as needed. She is advised to keep her appointment tomorrow at 3:30 PM with her family care doctor. By the evaluation outlined above emergent etiologies such as infection, hypoglycemia, electrolyte abnormalities, cardiac sources, intracerebral event, toxicologic, neurologic,as well as others were deemed relatively unlikely. The pt informed about the findings as listed above. All questions were answered and pleased with the treatment. Return instructions were outlined and the patient was discharged in stable condition. Case reviewed with my attending Referral: The patient was referred back to their primary care physician for follow-up in tomorrow as scheduled for a recheck of the current condition. The chart was completed utilizing [employer] Speech voice recognition software. Grammatical errors, random word insertions, pronoun errors, and incomplete sentences are an occassional consequence of this system due to software limitations, ambient noise, and hardware issues. Any formal questions or concerns about the content, text, or information contained within the body of this dictation should be directly addressed to the physician land surveyor assistant for clarification. Medical Decision As above Head Trauma GCS Score: 15 Medication Reconcilliation Current Medication List: was personally reviewed by me Blood Pressure Screening Patient's blood pressure: Normal blood pressure Impression Primary Impression: Syncope Additional Impression: Chest pain Departure Information Dispostion Home / Self-Care Condition GOOD Forms HOME CARE DOCUMENTATION FORM, IMPORTANT VISIT INFORMATION Patient Instructions Syncope Causes, My [facility] Additional Instructions DO NOT drive, drink alcohol, operate machinery, or perform dangerous activities today. You were given medications in the ER that can affect your ability to safely function or operate a vehicle. No sports or strenuous activity until cleared by the family care doctor. I strongly recommend that you get further workup by the ruby on rails software developer and neurologist for your recurrent syncopal episodes. By leaving tonight we cannot rule out any other further neurologic or cardiac problems that could be causing your syncopal events. You need to keep your appointment tomorrow as scheduled with your family care doctor. Continue current medications. Return to the ER immediately for worsening or persistent syncope, vomiting, fevers, chest pains, difficulty breathing, black or bloody stools, worsening of your condition, or as needed. Follow up with your primary physician in 24 hours for a recheck of your current condition. Problem Qualifiers Primary Impression: Syncope Syncope type: unspecified Qualified Codes: R55 - Syncope and collapse
--- NOTE | 2017-09-25 07:40 | DIAGNOSTIC IMAGING REPORT ---
CT SCAN OF THE BRAIN WITHOUT IV CONTRAST CLINICAL HISTORY: Head injury. Syncope. COMPARISON STUDY: No priors. TECHNIQUE: Unenhanced axial CT scan of the brain is performed from the vertex to the skull base. A dose lowering technique was utilized adhering to the principles of ALARA. The skull base was scanned twice due to motion artifact. CT DOSE: 767.83 mGy.cm FINDINGS: Brain parenchyma: The brain parenchyma is normal in appearance. There is no hemorrhage, mass effect, or evidence of acute territorial ischemia by CT criteria. Yip-white matter is preserved. No extra-axial fluid collection is seen. Ventricles, sulci, cisterns: Normal in configuration. Intracranial vasculature: The visualized intracranial vasculature at the skull base is normal in appearance. Calvarium: There is no depressed calvarial fracture. Sinuses and mastoids: The visualized paranasal sinuses are clear. The mastoid air cells are well pneumatized. Orbits: The bony orbits are grossly intact. IMPRESSION: No acute intracranial abnormality. Electronically signed by: Jermaine Guzmán M.D. 09/25/2017 7:39 AM Dictated Date/Time: 09/25/2017 7:37 AM
== END 2017-09-25 04:15 | disposition home or self-care (01) ==
LOC: C.EDB 00:34
DX: R55 Syncope and collapse (principal); R07.9 Chest pain, unspecified; E28.2 Polycystic ovarian syndrome; F17.200 Nicotine dependence, unspecified, uncomplicated; Z88.0 Allergy status to penicillin; Z80.1 Family history of malignant neoplasm of trachea, bronchus and lung